=== PATIENT | female | born 2000 ===

== ENCOUNTER 2022-02-16 23:00 | Emergency (ER) ==
[~2022-02-16] VITALS: Ht 172.7 cm; Wt 122.7 kg
[2022-02-16] MEDS ORDERED: DIPH50CA PO (23:26)
[2022-02-16] MEDS ORDERED: MELA5CAP2 PO (23:26)
[2022-02-16] MEDS ORDERED: TOPA25CA PO (23:26)
[2022-02-16] MEDS ORDERED: SERT-141 PO (23:26)
[2022-02-16] MEDS ORDERED: HYDR-3363 PO (23:26)
[2022-02-16] MEDS ORDERED: FAMO20TA PO (23:26)
[2022-02-16] MEDS ORDERED: METF500T13 PO (23:26)
[2022-02-16 23:27] VITALS: BP 194/96
== END 2022-02-17 00:48 | disposition left against medical advice (07) ==
LOC: M ED 23:00
DX: Z53.21 Procedure and treatment not carried out due to patient leaving prior to being seen by health care provider (principal)

== ENCOUNTER 2022-03-11 20:59 | Emergency (ER) | payer SELFPAY ==
[~2022-03-11] VITALS: Ht 172.7 cm; Wt 127.3 kg
[~2022-03-11 20:59] MED LIST: DIPH50CA PO; FAMO20TA PO; HYDR-3363 PO; MELA5CAP2 PO; METF500T13 PO; SERT-141 PO; TOPA25CA PO
[2022-03-11 21:23] VITALS: BP 142/88
== END 2022-03-11 22:08 | disposition left against medical advice (07) ==
LOC: M ED 20:59 → EDBD 20:59 → M ED 22:08
DX: Z53.21 Procedure and treatment not carried out due to patient leaving prior to being seen by health care provider (principal)